=== PATIENT | male | born 1940 | race Caucasian/White ===

== ENCOUNTER 2016-08-09 12:03 | Inpatient (IN) | payer OTHER ==
[~2016-08-09] VITALS: Ht 180.3 cm; Wt 123.2 kg
[2016-08-09] MEDS ORDERED: COMBIVENT0.074 GM/I INH (23:45)
[2016-08-09] MEDS ORDERED: CORDARONE 200M200 MG PO (23:45)
[2016-08-09] MEDS ORDERED: VITAMIN C 500500 MG PO (23:46)
[2016-08-09] MEDS ORDERED: NORVASC 5 MG TAB5 MG PO (23:46)
[2016-08-09] MEDS ORDERED: BUDESONIDE0.5 MG/2 M INH (23:46)
[2016-08-09] MEDS ORDERED: COREG 3.125M3.125 MG PO (23:47)
[2016-08-09] MEDS ORDERED: CARDURA 2MG TAB2 MG PO (23:48)
[2016-08-09] MEDS ORDERED: HYDRALAZINE HCL50 MG PO (23:49)
[2016-08-09] MEDS ORDERED: HUMULIN R100 UNIT/1 SQ (23:53)
[2016-08-09] MEDS ORDERED: NITROGLYCE20 MG/1 GM TD (23:54)
[2016-08-09] MEDS ORDERED: LEVOTHYROXINE200 MC1 PO (23:54)
[2016-08-09] MEDS ORDERED: PANTOPRAZOLE SO40 MG PO (23:55)
[2016-08-09] MEDS ORDERED: ACETAMINOPHEN325 MG PO (23:56)
[2016-08-09] MEDS ORDERED: VENTOLIN/PROVE0.5 ML INH (23:57)
[2016-08-09] MEDS ORDERED: ALUM-MAG HYDRO360 ML PO (23:58)
[2016-08-09] MEDS ORDERED: CATAPRES 0.1MG0.1 MG PO (23:59)
[2016-08-09] MEDS ORDERED: NITROSTAT 0.40.4 MG SL (23:59)
[2016-08-10] MEDS ORDERED: TRAMADOL HCL50 MG PO
[2016-08-10 00:33] LABS: HEMOGLOBIN 9.8 gm/dl (14.0-17.5); RED BLOOD COUNT 3.59 M/UL (4.20-5.50); WHITE BLOOD COUNT 8.1 K/UL (4.5-11.0)
[2016-08-10 06:23] LABS: RED BLOOD COUNT 3.7 M/UL (4.20-5.50); WHITE BLOOD COUNT 8.1 K/UL (4.5-11.0)
[2016-08-11 03:11] LABS: HEMOGLOBIN 9.9 gm/dl (14.0-17.5); RED BLOOD COUNT 3.66 M/UL (4.20-5.50); WHITE BLOOD COUNT 8.1 K/UL (4.5-11.0)
[2016-08-12 03:52] LABS: HEMOGLOBIN 9.1 gm/dl (14.0-17.5); RED BLOOD COUNT 3.36 M/UL (4.20-5.50)
[2016-08-13 05:11] LABS: HEMOGLOBIN 9.6 gm/dl (14.0-17.5); RED BLOOD COUNT 3.56 M/UL (4.20-5.50); WHITE BLOOD COUNT 6.8 K/UL (4.5-11.0)
[2016-08-14 03:34] LABS: HEMOGLOBIN 9.6 gm/dl (14.0-17.5); RED BLOOD COUNT 3.55 M/UL (4.20-5.50); WHITE BLOOD COUNT 5.8 K/UL (4.5-11.0)
[2016-08-18 03:24] LABS: HEMOGLOBIN 9.9 gm/dl (14.0-17.5); RED BLOOD COUNT 3.68 M/UL (4.20-5.50)
[2016-08-20 03:14] LABS: HEMOGLOBIN 8.2 gm/dl (14.0-17.5); WHITE BLOOD COUNT 5.2 K/UL (4.5-11.0)
[2016-08-20 03:22] LABS: RED BLOOD COUNT 3.06 M/UL (4.20-5.50)
[2016-08-21 04:24] LABS: HEMOGLOBIN 8.5 gm/dl (14.0-17.5); RED BLOOD COUNT 3.2 M/UL (4.20-5.50); WHITE BLOOD COUNT 4.8 K/UL (4.5-11.0)
[2016-08-22 04:20] LABS: HEMOGLOBIN 8.2 gm/dl (14.0-17.5); RED BLOOD COUNT 3.07 M/UL (4.20-5.50); WHITE BLOOD COUNT 4.5 K/UL (4.5-11.0)
[2016-08-23 04:12] LABS: HEMOGLOBIN 8.3 gm/dl (14.0-17.5); RED BLOOD COUNT 3.1 M/UL (4.20-5.50); WHITE BLOOD COUNT 4.4 K/UL (4.5-11.0)
[2016-08-24 03:56] LABS: HEMOGLOBIN 9.3 gm/dl (14.0-17.5); RED BLOOD COUNT 3.31 M/UL (4.20-5.50); WHITE BLOOD COUNT 4.5 K/UL (4.5-11.0)
[2016-08-26 04:24] LABS: HEMOGLOBIN 9.1 gm/dl (14.0-17.5); RED BLOOD COUNT 3.44 M/UL (4.20-5.50); WHITE BLOOD COUNT 4.8 K/UL (4.5-11.0)
[2016-08-28 04:02] LABS: HEMOGLOBIN 8.7 gm/dl (14.0-17.5); RED BLOOD COUNT 3.29 M/UL (4.20-5.50); WHITE BLOOD COUNT 4.8 K/UL (4.5-11.0)
[2016-08-29 03:53] LABS: RED BLOOD COUNT 3.39 M/UL (4.20-5.50); WHITE BLOOD COUNT 5.1 K/UL (4.5-11.0)
[2016-08-30 03:44] LABS: HEMOGLOBIN 9.1 gm/dl (14.0-17.5); RED BLOOD COUNT 3.45 M/UL (4.20-5.50); WHITE BLOOD COUNT 5.2 K/UL (4.5-11.0)
[2016-08-31 03:48] LABS: HEMOGLOBIN 9.1 gm/dl (14.0-17.5); RED BLOOD COUNT 3.45 M/UL (4.20-5.50); WHITE BLOOD COUNT 5.7 K/UL (4.5-11.0)
[2016-09-02 05:13] LABS: RED BLOOD COUNT 3.37 M/UL (4.20-5.50); WHITE BLOOD COUNT 4.4 K/UL (4.5-11.0)
[2016-09-03] MEDS ORDERED: COUMADIN4 MG PO (18:12)
[2016-09-03] MEDS ORDERED: FERROUS SULFAT325 MG PO (18:12)
[2016-09-03] MEDS ORDERED: LEVAQUIN500 MG PO (18:12)
[2016-09-03] MEDS ORDERED: NYSTATIN1 EAC9 MC (18:13)
[2016-09-03] MEDS ORDERED: THERAGRAN TAB1 EA PO (18:17)
[2016-09-03] MEDS ORDERED: GLUCERNA237 ML PO (18:18)
== END 2016-09-03 20:00 | disposition home health service (06) | DRG 682 ==
LOC: PROG CARE 12:03 → EDBD 22:13 → MED SURG 4 22:13 → PROG CARE 22:13 → MED SURG 4 08-31 12:10
PROVIDERS: Family Medicine; Internal Medicine; Internal Medicine Nephrology; Legal Medicine; ADMIT Emergency Medicine
DX: N17.0 Acute kidney failure with tubular necrosis (principal); I50.23 Acute on chronic systolic (congestive) heart failure; J96.21 Acute and chronic respiratory failure with hypoxia; J96.22 Acute and chronic respiratory failure with hypercapnia; I13.0 Hypertensive heart and chronic kidney disease with heart failure and stage 1 through stage 4 chronic kidney disease, or unspecified chronic kidney disease; E87.0 Hyperosmolality and hypernatremia; E87.4 Mixed disorder of acid-base balance; J98.11 Atelectasis; R68.0 Hypothermia, not associated with low environmental temperature; B37.2 Candidiasis of skin and nail; E87.6 Hypokalemia; E83.51 Hypocalcemia; I48.2 Chronic atrial fibrillation; G47.33 Obstructive sleep apnea (adult) (pediatric); E66.01 Morbid (severe) obesity due to excess calories; Z68.37 Body mass index [BMI] 37.0-37.9, adult; J44.9 Chronic obstructive pulmonary disease, unspecified; E78.5 Hyperlipidemia, unspecified; E11.22 Type 2 diabetes mellitus with diabetic chronic kidney disease; N18.3 Chronic kidney disease, stage 3 (moderate); E83.39 Other disorders of phosphorus metabolism; Z72.3 Lack of physical exercise; M54.5 Low back pain; M25.50 Pain in unspecified joint; I87.8 Other specified disorders of veins; D50.9 Iron deficiency anemia, unspecified; H91.90 Unspecified hearing loss, unspecified ear; E89.0 Postprocedural hypothyroidism; Y83.6 Removal of other organ (partial) (total) as the cause of abnormal reaction of the patient, or of later complication, without mention of misadventure at the time of the procedure; I25.10 Atherosclerotic heart disease of native coronary artery without angina pectoris; Z99.81 Dependence on supplemental oxygen; Z95.5 Presence of coronary angioplasty implant and graft; Z79.4 Long term (current) use of insulin; Z79.899 Other long term (current) drug therapy; Z88.5 Allergy status to narcotic agent; Z88.0 Allergy status to penicillin; Z88.8 Allergy status to other drugs, medicaments and biological substances; Z82.49 Family history of ischemic heart disease and other diseases of the circulatory system; Z79.01 Long term (current) use of anticoagulants; Z79.1 Long term (current) use of non-steroidal anti-inflammatories (NSAID); Z79.891 Long term (current) use of opiate analgesic; Z79.51 Long term (current) use of inhaled steroids; D63.8 Anemia in other chronic diseases classified elsewhere
CPT/HCPCS: ECHO; 36415; 36600; 71010; 71020; 73502; 80048; 80053; 80061; 80202; 81001; 82043; 82436; 82550; 82553; 82570; 82728; 82803; 82962; 83036; 83540; 83550; 83735; 83880; 84100; 84133; 84156; 84300; 84439; 84443; 84484; 85027; 85610; 85730; 87040; 87070; 87205; 89050; 93005; 93306; 94640; 94660; 94668; 97110; 97116; 97530; 97535; J1205; J1940; J2405; J2550; J7030; J7050; Q0177